=== PATIENT | male | born 1985 | race Hispanic/Latino ===

== ENCOUNTER 2020-09-20 01:31 | Emergency (ER) | payer OTHER ==
[2020-09-20] MEDS ORDERED: EPINEPHrine 1 MG/10 ML SYR IV ONE (01:32)
--- NOTE | 2020-09-20 01:36 | EDPHYS ---
Physician Documentation [facility] Name: Jose Alfredo Mai Age: 35 yrs Sex: Male : 1985 Arrival Date: 09/20/2020 Time: 01:33 Bed 3 Private MD: ED Physician John Pierce HPI: 09/20 04:04 This 35 yrs old Male presents to ER via EMS with complaints of CPR. tw4 04:04 Preceding the arrest, the patient collapsed, had chest pain. The arrest occurred at tw4 work. Pre-hospital course: The arrest was witnessed by family. The patient has not experienced similar symptoms in the past. - Immunization history:: Adult Immunizations unknown. - Social history:: Smoking status: unknown. ROS: 04:04 Unable to obtain ROS due to comatose state. tw4 Exam: 04:04 Constitutional: The patient appears comatose, CPR in progress tw4 04:04 Cardiovascular: Pulses: not palpable. 04:04 Respiratory: pt being bagged via Ambu bag. Vital Signs: 01:19 Pulse 0; Resp 0; ea 01:20 Pulse 0; Resp 0; rr5 01:23 Pulse 0; Resp 0; rr5 01:25 Pulse 0; Resp 0; rr5 01:27 Pulse 0; Resp 0; rr5 01:50 Temp 98.5(R); rr5 01:53 Weight 90 kg; Height 5 ft. 8 in. (172.72 cm); rr5 01:53 Body Mass Index 30.17 (90.00 kg, 172.72 cm) rr5 Procedures: 04:04 CPR: See CPR flow sheet. Initial patient assessment: unresponsive, no respiratory tw4 effort, pupils pinpoint, intubated, Ambu ventilation, The presenting cardiac rhythm is asystole. respirations assisted with BVM, Compressions: began prior to arrival. Meds given: Epinephrine X 3, despite ED evaluation and treatment, the patient . Family notified. CPR was stopped at 01:27. MDM: 01:35 Patient medically screened. tw4 04:04 Differential diagnosis: arrythmia, cardiac arrest, respiratory arrest. Data reviewed: tw4 vital signs, nurses notes. Data interpreted: Pulse oximetry: Interpretation: normal. Counseling: I had a detailed discussion with the patient and/or guardian regarding: the historical points, exam findings, and any diagnostic results supporting the discharge/admit diagnosis. 09/20 01:34 Order name: glucometer results - FOR PT WITH NO ID em 09/20 02:08 Order name: Glucose, Ancillary(No Armband) EDMS Administered Medications: 01:20 Drug: EPINEPHrine 0.1mg/mL 1:10,000 1 mg {Note: left IO .} Route: IVP; Site: Other; ea 01:23 Drug: EPINEPHrine 0.1mg/mL 1:10,000 1 mg Route: IVP; Site: right hand; ea 01:23 Drug: Sodium Bicarbonate 1 amp Route: IVP; Site: right antecubital; ea 01:26 Drug: EPINEPHrine 0.1mg/mL 1:10,000 1 mg Route: IVP; Site: left antecubital; ea Disposition: 01:33 . tw4 Disposition: Patient pronounced on 09/20/20 01:27 by John Pierce. Impression: Cardiac arrest, cause unspecified. - Released to Delivery Professional. Signatures: Dispatcher [employer] EDIA Stacy Oliva, RN RN John Kimball MD MD tw4 Corrections: (The following items were deleted from the chart) 04:11 01:35 09/20/2020 01:35 Patient pronounced on 09/20/2020 at 01:27 by John Pierce. keyla Impression: Cardiac arrest, cause unspecified. Released to Delivery Professional. tw4
--- NOTE | 2020-09-20 04:12 | ER ---
Nurse's Notes [facility] Name: Jose Alfredo Mai Age: 35 yrs Sex: Male : 1985 Arrival Date: 09/20/2020 Time: 01:33 Bed 3 Private MD: Diagnosis: Cardiac arrest, cause unspecified Presentation: 09/20 01:19 Chief complaint: EMS states: Pt at work, witnessed arrest by bystander approx downtime ea since 1243. CPR continued by EMS, IO left tibia , epi given x 3, [place] tube established per EMS. Care prior to arrival: CPR manually performed by bystander performed by EMS and is still in progress. 01:19 Acuity: BORA 1 ea 01:19 Method Of Arrival: EMS: [facility] ea 01:19 Compressions began prior to arrival. ea 01:19 Coronavirus screen: uknown. Ebola Screen: Unable to complete the Ebola screening ea because: Patient is unresponsive. Initial Sepsis Screen:. Risk Assessment: Do you want to hurt yourself or someone else? Unable to obtain. - Immunization history:: Adult Immunizations unknown. - Social history:: Smoking status: unknown. Screenin:19 Nutritional screening: unable to obtain . ea 01:19 Abuse screen:. Tuberculosis screening: unknown. Fall Risk None identified. ea Assessment: 01:20 CPR assessment: unresponsive, pupils fixed \\T\\ dilated, no respiratory effort, Ambu ea ventilation, cyanotic. Cardiac rhythm is asystole. 01:22 CPR assessment: unresponsive, pupils fixed \\T\\ dilated, no respiratory effort, Ambu ea ventilation, cyanotic. Cardiac rhythm is asystole. 01:25 CPR assessment: unresponsive, pupils fixed \\T\\ dilated, no respiratory effort, Ambu ea ventilation, cyanotic. Cardiac rhythm is asystole. 01:27 CPR assessment: pupils fixed \\T\\ dilated, no respiratory effort. Cardiac rhythm is ea asystole. General: Time of per ED physician \\T\\ 0127. 01:45 Reassessment: report given to [employer] "cynthia" person candidate for donor case number [id number]. 02:19 Reassessment: PD at bedside. rr5 03:00 Reassessment: for [place] case as per judge peggy dawn/ [place] PD officer. rr5 Vital Signs: 01:19 Pulse 0; Resp 0; ea 01:20 Pulse 0; Resp 0; rr5 01:23 Pulse 0; Resp 0; rr5 01:25 Pulse 0; Resp 0; rr5 01:27 Pulse 0; Resp 0; rr5 01:50 Temp 98.5(R); rr5 01:53 Weight 90 kg; Height 5 ft. 8 in. (172.72 cm); rr5 01:53 Body Mass Index 30.17 (90.00 kg, 172.72 cm) rr5 ED Course: 01:19 Patient placed in an exam room, on a stretcher, on oxygen, on athletic monitor, on pulse ea oximetry. 01:23 Inserted saline lock: 20 gauge in right hand, using aseptic technique. ,using aseptic ea technique. per Bala HURT. 01:24 Inserted saline lock: 20 gauge in left antecubital area, using aseptic technique. ea 01:33 Patient arrived in ED. tw4 01:34 John Pierce MD is Pronouncing Provider. tw4 01:34 John Pierce MD is Attending Physician. tw4 01:41 Triage completed. ea 02:55 Stacy Oliva, BLU is Primary Nurse. ea Administered Medications: 01:20 Drug: EPINEPHrine 0.1mg/mL 1:10,000 1 mg {Note: left IO .} Route: IVP; Site: Other; ea 01:23 Drug: EPINEPHrine 0.1mg/mL 1:10,000 1 mg Route: IVP; Site: right hand; ea 01:23 Drug: Sodium Bicarbonate 1 amp Route: IVP; Site: right antecubital; ea 01:26 Drug: EPINEPHrine 0.1mg/mL 1:10,000 1 mg Route: IVP; Site: left antecubital; ea Outcome: 04:11 Patient left the ED. ea Signatures: Stacy Oliva, BLU RN John Kimball MD MD tw4 Luciano Simeon RN RN rr5 Corrections: (The following items were deleted from the chart) 01:48 01:19 Chief complaint: EMS states: Pt at work, witnessed arrest by bystander. CPR ea continued by EMS, IO left tibia , epi given x 3, [place] tube established per EMS ea 01:49 01:20 EPINEPHrine 0.1mg/mL 1:10,000 1 mg IVP in right hand ea ea
[2020-09-20 04:15] VITALS: TEMP 98.5
== END 2020-09-20 04:11 ==
LOC: ER 01:31
PROC: 5A02216 Assistance with Cardiac Output using Other Pump, Continuous (ICD-10-PCS; principal; 2020-09-20)
DX: I46.9 Cardiac arrest, cause unspecified (principal)
CPT/HCPCS: 36415; 82947; 92950; J0171; 99285